=== PATIENT | male | born 1970 | race Caucasian/White ===

== ENCOUNTER 2025-03-16 20:10 | Inpatient (IN) | payer OTHER, SELFPAY ==
[2025-03-16 13:28] VITALS: BP 203/115
--- NOTE | 2025-03-16 14:45 | ED.GENMED ---
History of Present Illness
<Natasha Jensen NP - Last Filed: 03/16/25 21:34>
General
Chief Complaint: Musculo-Skeletal Complaint
Source: patient
Exam Limitations: none
Time Seen by Provider: 03/16/25 14:35
Nursing documentation reviewed up to this point in time: agreed with
History of Present Illness
History of Present Illness:
Patient to ED with redness, swelling, sharp pain to RLE. Symptoms started approx 2 weeks ago. He thought he may have been bit by a bug initially but redness and swelling continue to worsen. Now notes electric shock pain to his leg. He was placed
on an antibiotic approx 10 days ago without improvement. Today he was evaluated by and advised to come to ED. Denies fever/chills No drainage from leg.
Past History
<Natasha Jensen NP - Last Filed: 03/16/25 21:34>
Past History
ED Past Medical History: Psychiatric (Psychosis)
ED Past Surgical History: None
Social History
Tobacco: Smoker
Alcohol: Occasional
Personal: Single
Living: with family
Employment: Not employed
Family History
Family History: Negative Sudden
Review of Systems
<Natasha Jensen NP - Last Filed: 03/16/25 21:34>
Review of Systems
Allergies reviewed?: Yes
All Other Systems: ROS reviewed and negative except as documented in HPI and ROS
Constitutional: Reports no symptoms
EENT: Reports no symptoms
Respiratory: Reports no symptoms
Cardiac: Reports no symptoms
ABD/GI: Reports no symptoms
: Reports no symptoms
Musculoskeletal: Reports other (erythema pain swelling RLE)
Skin: Reports other (erythema and swelling to RLE)
Neurological: Reports no symptoms
Psychiatric: Reports no symptoms
Phy Exam
<Natasha Jensen NP - Last Filed: 03/16/25 21:34>
General Physical Exam
General Presentation: well appearing and no apparent distress
General age: appears stated age
General Skin: warm and dry
General Habitus: normal
General Mental: alert
Musculoskeletal Exam
Musculoskeletal Exam: full ROM and neuro vasc intact
Skin Exam
Skin Exam: warm/dry and other (erythema and swelling to right leg - thighs to toes)
Psychiatric Exam
Psychiatric Exam: normal mood/affect
Course
<Natasha Jensen [employer]URE INSTRUCTOR - Last Filed: 03/16/25 21:34>
Orders/Labs/Results
Orders:
Orders
03/16/25 14:44
Periph Venous Lwr Ext Rt US [US Periph Venous LOWER Ext RT] Urgent
Comment:
Reason For Exam: redness, swelling
03/16/25 15:09
Complete Blood Count/With Diff Urgent
Comprehensive Metabolic Panel Urgent
Lactic Acid Urgent
03/16/25 18:09
Vancomycin [Vancocin] 2,000 mg 0.9% Sodium Chloride 500 ml [Nss] 500 ml IV NOW
03/16/25 19:39
Admit/Transfer Patient As Directed
Co-Sign Provider:
Level of Care: Inpatient admission
Assign to:: Medical/Surgical
Physician / Group: carlo jefferson
Diagnosis: rle cellulitiis
Reason for Hospitalization: rle cellulitis
Expected length of stay greater than two midnights?: Yes
ELOS- Estimated Length of Stay in days: 4
I certify the patient meets the requirements for IP care: Yes
Code Status As Directed
Resuscitation Status: Full Code
03/16/25 19:43
PRN Pain Medication Management As Directed
May give lesser potent ordered pain med per pt: Yes
preference::
Protocol:: Medication orders for pain may be administered in a
manner that supports deferring to patient preference
when the pt is:
- Requesting an ordered lesser potent pain medication.
Least to most potent pain medications are defined
as: acetaminophen < NSAID < tramadol < opioids
(morphine, oxycodone, hydromorphone).
- Requesting a lesser dose of the same medication IF
ORDERED.
- Requesting a less intrusive route of administration
if both routes are prescribed by the provider (PO <
IV).
03/16/25 20:00
HydrALAZINE [Apresoline] 10 mg IV Q6HPRN PRN
Abnormal Lab Results
03/16/25
15:09
Immature Gran % 0.6 H %
(0-0.5)
Glucose 123 H mg/dl
(70-99)
03/16/25 15:09
03/16/25 15:09
Vital Signs
Initial and Last Documented VS:
Initial Vital Signs
Temp Pulse Resp BP Pulse Ox
98.0 F 90 16 203/115 98
03/16/25 13:28 03/16/25 13:28 03/16/25 13:28 03/16/25 13:28 03/16/25 13:28
Last Documented Vital Signs
Temp Pulse Resp BP Pulse Ox
98.2 F 70 20 172/113 98
03/16/25 18:04 03/16/25 18:04 03/16/25 18:04 03/16/25 18:04 03/16/25 18:04
<Amanda Foster DO - Last Filed: 03/16/25 18:39>
Orders/Labs/Results
Orders:
Orders
03/16/25 14:44
Periph Venous Lwr Ext Rt US [US Periph Venous LOWER Ext RT] Urgent
Comment:
Reason For Exam: redness, swelling
03/16/25 15:09
Complete Blood Count/With Diff Urgent
Comprehensive Metabolic Panel Urgent
Lactic Acid Urgent
03/16/25 18:09
Vancomycin [Vancocin] 2,000 mg 0.9% Sodium Chloride 500 ml [Nss] 500 ml IV NOW
03/16/25 19:39
Admit/Transfer Patient As Directed
Co-Sign Provider:
Level of Care: Inpatient admission
Assign to:: Medical/Surgical
Physician / Group: carlo jefferson
Diagnosis: rle cellulitiis
Reason for Hospitalization: rle cellulitis
Expected length of stay greater than two midnights?: Yes
ELOS- Estimated Length of Stay in days: 4
I certify the patient meets the requirements for IP care: Yes
Code Status As Directed
Resuscitation Status: Full Code
03/16/25 19:43
PRN Pain Medication Management As Directed
May give lesser potent ordered pain med per pt: Yes
preference::
Protocol:: Medication orders for pain may be administered in a
manner that supports deferring to patient preference
when the pt is:
- Requesting an ordered lesser potent pain medication.
Least to most potent pain medications are defined
as: acetaminophen < NSAID < tramadol < opioids
(morphine, oxycodone, hydromorphone).
- Requesting a lesser dose of the same medication IF
ORDERED.
- Requesting a less intrusive route of administration
if both routes are prescribed by the provider (PO <
IV).
03/16/25 20:00
HydrALAZINE [Apresoline] 10 mg IV Q6HPRN PRN
Abnormal Lab Results
03/16/25
15:09
Immature Gran % 0.6 H %
(0-0.5)
Glucose 123 H mg/dl
(70-99)
03/16/25 15:09
03/16/25 15:09
Vital Signs
Initial and Last Documented VS:
Initial Vital Signs
Temp Pulse Resp BP Pulse Ox
98.0 F 90 16 203/115 98
03/16/25 13:28 03/16/25 13:28 03/16/25 13:28 03/16/25 13:28 03/16/25 13:28
Last Documented Vital Signs
Temp Pulse Resp BP Pulse Ox
98.2 F 70 20 172/113 98
03/16/25 18:04 03/16/25 18:04 03/16/25 18:04 03/16/25 18:04 03/16/25 18:04
<Natasha Jensen NP - Last Filed: 03/16/25 21:34>
*Radiology
Radiology exam reviewed: radiology read reviewed
*Pulse Oximetry
SaO2: 98
Oxygen Mode of Delivery: Room air
Patient hypoxic: no
*Critical Care Note
Total Time (30-74mins, 75-104mins- exclusive of procedures): Not Applicable
<Natasha Jensen NP - Last Filed: 03/16/25 21:34>
Update Note
Update Note:
Patient to ED with report of increasing pain redness and swelling to RLE. Symptoms started 2 weeks ago. He took a course of Keflex 500mg QID without improvement. Redness and swelling migrating up into thigh. VSS he remains afebrile. WBC normal.
US neg for DVT. +subcutaneous edema throught leg. Case discussed with Dr. Foster who also evaluated this patient. WIll admit to hospitalist for cellulitis. IV antibiotics started in ED
ED Attending Note
<Natasha Jensen NP - Last Filed: 03/16/25 21:34>
-
Portions of this chart may have been created with voice recognition software.� Occasional wrong word or��sound alike� substitutions may have occurred due to the inherent limitations of voice recognition software.
<Amanda Foster DO - Last Filed: 03/16/25 18:39>
ED Attending Note
Patient seen and examined by attending physician: Yes
I performed the substantive portion of visit, reviewed & personally made and approve the management plan that is documented in note by myself or SIDDHARTHA.: Yes
I performed a history and physical exam of patient and discussed management with resident, I reviewed resident's note and agree with documented findings and plan of care.: Yes
ED Attending Note:
54-year-old male with history of schizophrenia presenting for right lower extremity leg swelling. Patient reports the leg has been swollen for about 2 weeks. He went to urgent care, thought to have cellulitis and was started on Keflex. Notes that
he completed a 5-day course without improvement. He is unsure whether or not he was bit by anything. Denies any history of diabetes. Since antibiotic, increased swelling, extending up to the thigh. Denies numbness or tingling. Denies fever.
Vital significant for hypertension.
On exam patient is resting comfortably, no acute distress. Obvious swelling to the right lower extremity extending from the thigh down to the foot with scattered erythema and streaking up to the inner thigh. No obvious sores or wounds. Distal
sensation and pulses intact. DVT ultrasound obtained, negative. No present concern for neurovascular compromise. Symptoms appear consistent with worsening cellulitis, failure of outpatient therapy. Ultrasound does show diffuse subcutaneous
emphysema. Given distribution and worsening after oral antibiotics, feel patient warrants admission for IV antibiotics. Patient agreeable to plan
Discharge Plan
Departure
Patient Disposition: Admit
Date of Disposition: 03/16/25
Time of Disposition: 18:10
Presentation/result/management discussed w/ accepting MD/DO: Hospitalist
Condition: Fair
Covid-19: Not Applicable
Discharge Problem:
Cellulitis of leg
Interventions
Interventions:
*Risk Screen - Suicide Last Done: 03/16/25 13:28
*General Assessment Last Done: 03/16/25 15:10
*Neglect/Abuse Screening Last Done: 03/16/25 13:28
*ED- Fall Risk Assessment Last Done: 03/16/25 15:10
*ED COVID-19 Vaccine History Last Done: 03/16/25 15:10
*ED Influenza Vaccine History Last Done: 03/16/25 15:10
*Nursing Disposition Last Done: 03/16/25 21:27
ED-Musculoskeletal Assessment Last Done: 03/16/25 15:14
Discharge Date and Time
Discharge Date/Time: 03/16/25 21:30
[2025-03-16 14:57] VITALS: BP 176/106; BMI 50.8
[2025-03-16 15:00] VITALS: BP 176/106
[2025-03-16 15:19] LABS: Hematocrit 41.5 % (39.0-52.0); Hemoglobin 14.0 g/dL (13.0-18.0); Mean Corp Hgb Conc. 33.7 g/dL (33.0-37.0); Mean Corpuscular Volume 87.9 fL (80.0-94.0); Nucleated Red Blood Cells % 0 % (-); Platelet Count 250 10^3/uL (130-400); Red Cell Dist. Width 12.7 % (11.5-14.5)
[2025-03-16 15:38] LABS: ALT (SGPT) 38 U/L (0-50); AST (SGOT) 22 U/L (17-59); Albumin 4.3 g/dl (3.5-5.0); Alkaline Phosphatase 58 U/L (38-126); Blood Urea Nitrogen 13 mg/dl (9-20); Calcium 8.8 mg/dl (8.4-10.2); Carbon Dioxide 27 mmol/L (22-30); Chloride 107 mmol/L (98-107); Estimated Creatinine Clearance > 125 ml/min; Glucose 123 mg/dl (70-99); Potassium 4.2 mmol/L (3.5-5.1); Sodium 138 mmol/L (135-145); Total Protein 6.9 g/dl (6.3-8.2); eGFR > 60.00
[2025-03-16 18:04] VITALS: BP 172/113
--- NOTE | 2025-03-16 18:55 | HPS.HSE ---
Addendum entered and electronically signed by Yi Bates MD 03/16/25 20:58:
This is an addendum to H&P written by Christina Yousif on 03/16/2025. �Patient seen and examined independently with SOLE DYER.
54-year-old male past medical history of schizophrenia, presenting redness, swelling and sharp pain in the right lower extremity starting 2 weeks ago. �He thought he was initially bit by a bug but the redness and swelling continued to worsen. �He
was started on Keflex 8 days ago without improvement. �No fevers or chills or drainage from the leg.
Vital signs show blood pressure up to 203/115.
Labs unremarkable.
Peripheral venous ultrasound shows no sonographic evidence of right lower extremity DVT. �There is mild to moderate diffuse subcutaneous edema throughout the right leg.
Patient with cellulitis of right lower extremity. �Vancomycin.
Uncontrolled hypertension. PRN hydralazine.
Original Note:
Family Physician
-
Family Physician: NOT KNOW UNKNOWN - PT DOES
Chief Complaint
-
Right lower extremity erythema
History of Present Illness
54-year-old male with history of schizophrenia, somatic hallucinations states his right leg became swollen with a dry patch approximately 3 weeks ago he waited until 8 days ago to be seen at [facility] where he was prescribed Keflex and given a
tetanus shot as he is worried about bugs in his house. He reports over the past 3 days he started feeling a needlelike pain up the entire leg along with redness spreading up to his upper thigh. He reports feeling some chills but states was in his
computer room which tends to be hot. He does not own a thermometer. He denies headache, chest pain, palpitations, cough, shortness of breath, abdominal pain, nausea, vomiting, diarrhea, urinary symptoms he has past medical history of schizophrenia
with somatic hallucinations, neuropathy, anxiety, class III obesity.
Medical History
Past Medical History
Past Medical History: Reports Other
Additional Past Medical History:
schizophrenia with somatic hallucinations
neuropathy
anxiety
class III obesity.
Past Surgical History: Reports None
Social History
Tobacco: Non-smoker
Alcohol: Occasional
Personal: Single
Living: Alone
Employment: Disabled
Family History
Family History: Not pertinent
Allergies / Home Medications
Allergies reflects when Allergies were last updated in [facility].
Home Medications with original date entered in [facility]
Allergy/Medication List:
Allergies
Allergy/AdvReac Type Severity Reaction Status Date / Time
NKA - No Known Allergies Allergy Unknown Uncoded 03/16/25 13:33
Home Medications
lorazepam 1 mg tablet 1 mg PO TID@0800,1200,2100 08/10/15
gabapentin 800 mg tablet 3,200 mg PO HS 03/16/25
ibuprofen 200 mg tablet 400 mg PO DAILYPRN PRN mild pain 03/16/25
lumateperone 42 mg capsule (Caplyta) 42 mg PO HS 03/16/25
trazodone 100 mg tablet 50 mg PO BIDPRN PRN anxiety 03/16/25
trazodone 100 mg tablet 400 mg PO HS 03/16/25
Review of Systems
-
History Source: Patient
A 12 point ROS was completed and negative except as noted: Yes
Constitutional: Denies Fever or Chills
EENT: Denies Sore Throat
Respiratory: Denies Cough or Trouble Breathing
Cardiac: Denies Chest Pain, Diaphoresis or Palpitations
Abdomen/GI: Denies Abdominal Pain, Nausea, Vomiting, Diarrhea or Constipated
: Denies Dysuria or Frequency
Skin: Denies Itching or Rash
Neurological: Denies Dizzy, Headache or Weakness
Endocrine: Reports No Symptoms
Hematologic/Lymphatic: Reports No Symptoms
Psych: Reports Calm
Physical Exam
Vital Signs
Vital Signs
Temp Pulse Resp BP Pulse Ox
98.2 F 70 20 172/113 98
03/16/25 18:04 03/16/25 18:04 03/16/25 18:04 03/16/25 18:04 03/16/25 18:04
Physical Exam
General: Conversant and Pain; No Fever or Chills
HEENT: NormoCephalic, Anicteric, Moist mucous membranes, PERRLA, [place] Conjunctivae and No Ptosis
Respiratory: Clear; No Wheezes or Rales
Cardiac: S1/S2 and Regular Rhythm; No Murmur, Rub or Gallop
Breast: Deferred by me
GI: Soft, Non Tender, Non Distended and Normal Bowel Sounds
Genito-urinary: Deferred by me
Musculoskeletal: No Clubbing, No Cyanosis and Edema, Right Lower Extremity (Circumferential erythema extending up to thigh, small dry area of skin medial aspect of ankle no obvious wounds); No Edema, Left Upper Extremity, Edema, Right Upper
Extremity or Edema, Left Lower Extremity
Skin: Warm and Dry; No Rash or Jaundice
Neuro: AO x 3, No Motor Deficits, Nonfocal/grossly intact, Cranial Nerves Intact and No Sensory Deficits; No Slurred Speech, Facial Droop or Tremors
Psych: Calm
Laboratory Results
-
03/16/25 15:09
03/16/25 15:09
Laboratory Results
Lactic Acid 0.8 mmol/L (0.7-2.0) 03/16/25 15:09
Total Bilirubin 0.4 mg/dl (0.2-1.3) 03/16/25 15:09
AST 22 U/L (17-59) 03/16/25 15:09
ALT 38 U/L (0-50) 03/16/25 15:09
Alkaline Phosphatase 58 U/L (38-126) 03/16/25 15:09
Data Reviewed
-
Lab Data: Labs Reviewed by me
Impression/Plan
-
Impression/plan:
Admit to MedSurg
#Right lower extremity cellulitis
-IV vancomycin
- Follow CBC, BMP follow CBC, BMP
Venous Doppler right lower extremity: No evidence of DVT,
mild to moderate diffuse subcutaneous edema throughout the right lower leg
#HTN-new
BP 172/113
IV hydralazine as needed
#Neuropathy -somatic hallucinations
-Continue gabapentin 3200 mg at bedtime
#Schizophrenia
#Anxiety
- Continue Caplyta 42 mg at bedtime(patient's brother to bring medication in )
-Continue trazodone 50 mg twice daily as needed, trazodone 400 mg at bedtime, lorazepam 1 mg 3 times daily
#Class III obesity�BMI 50.7
DVT prophylaxis
Subcu Lovenox
Full code
[2025-03-16] MEDS: VANCOCIN 540 MG IV (19:29)
--- NOTE | 2025-03-16 22:05 | TRANSFER ---
Pt arrived from ED by stretcher. Vancomycin running through left AC. Pt walked himself into the room. Vitals taken, BP 138/105. PRN hydralazine given. See MAR. Call hogan within reach.
--- NOTE | 2025-03-16 22:14 | PHA.VAN.IN ---
Assessment
- Assessment
Renal Function: Appears similar to baseline (SCr 0.9)
AUC Dosing Plan
- Dosing Variables
Dosing Weight (kg): 165
Dosing CrCl (ml/min): 125
Vd coefficient (L/kg): 0.5
- Empiric Dosing
Initial / Loading Dose: Vanco 2G loading dose administered 03/16/25 at 1929
Maintenance Regimen: Vanco 1500mg Q8H starting 10/15/24 0600
Estimated AUC (mcg*h/mL): 545
Estimated Peak (mcg*h/mL): 31.4
Estimated Trough (mcg/ml): 15.5
Estimated Half Life (H): 6.4
- Monitoring
No levels ordered at this time: consider in the next few days
Pharmacokinetics Vancomycin I
- -
Patient Age: 54
Patient Sex: Male
Vancomycin Day #: 1
Indication: Skin And Soft Tissue
Requesting Provider: TATUM
Pertinent Antimicrobial Allergies:
No known drug allergies
Height / Weight:
Height 5 ft 11 in
Actual Weight 165 kg
- Vital Signs / Lab Results
Temp Pulse Resp BP Pulse Ox
98.2 F 70 20 172/113 98
03/16/25 18:04 03/16/25 18:04 03/16/25 18:04 03/16/25 18:04 03/16/25 18:04
Lab Results - Hematology
03/16/25
15:09
WBC 6.3
Lab Results - Chemistry
03/16/25
15:09
BUN 13
Creatinine 0.9
Estimated Creat Clear > 125
Albumin 4.3
03/16/25
15:09
Lactic Acid 0.8
[2025-03-16 22:18] VITALS: BP 139/105
[2025-03-16 22:29] VITALS: BMI 50.2
[2025-03-16] MEDS: NON-FORMULARY ITEM 42 MG PO (23:14)
[2025-03-16] MEDS: DESYREL 400 MG PO (23:15)
[2025-03-16] MEDS: ATIVAN 1 MG PO (23:15)
--- NOTE | 2025-03-16 23:54 | PTCARENOTE ---
Pt home med rec shows Gabapentin 3200mg HS. Nothing was ordered in AUG. TT house provider for order. Clarified with patient about the dose and schedule of medication. See MAR.
[2025-03-17] MEDS: APRESOLINE 10 MG IV (00:19)
[2025-03-17] MEDS: NEURONTIN 3200 MG PO ×2 (00:21→21:32)
[2025-03-17 03:50] VITALS: BP 146/78
[2025-03-17 04:19] VITALS: BMI 50.2
[2025-03-17] MEDS: VANCOCIN 530 MG IV ×2 (05:57→14:05)
[2025-03-17 07:23] LABS: Hematocrit 38.1 % (39.0-52.0); Hemoglobin 12.9 g/dL (13.0-18.0); Mean Corp Hgb Conc. 33.9 g/dL (33.0-37.0); Mean Corpuscular Volume 89.9 fL (80.0-94.0); Nucleated Red Blood Cells % 0 % (-); Platelet Count 224 10^3/uL (130-400); Red Cell Dist. Width 12.8 % (11.5-14.5)
[2025-03-17 07:33] LABS: ALT (SGPT) 29 U/L (0-50); AST (SGOT) 18 U/L (17-59); Albumin 3.4 g/dl (3.5-5.0); Alkaline Phosphatase 55 U/L (38-126); Blood Urea Nitrogen 13 mg/dl (9-20); Calcium 8.8 mg/dl (8.4-10.2); Carbon Dioxide 26 mmol/L (22-30); Chloride 111 mmol/L (98-107); Estimated Creatinine Clearance > 125 ml/min; Glucose 146 mg/dl (70-99); Potassium 4.0 mmol/L (3.5-5.1); Sodium 140 mmol/L (135-145); Total Protein 5.8 g/dl (6.3-8.2); eGFR > 60.00
[2025-03-17 07:34] LABS: Glucose - Point of Care 102 mg/dl (70-99)
[2025-03-17 07:40] VITALS: BP 174/95
[2025-03-17] MEDS: ATIVAN 1 MG PO ×3 (08:04→21:32)
--- NOTE | 2025-03-17 09:20 | PHA.VAN.FU ---
Vancomycin Assessment / Plan
- Assessment
Renal Function: Stable
WBC's are: WNL
In the past 24 hrs, patient has been: Afebrile
- Dosing Plan
Continue: VANCO 1500MG Q8H
- Monitoring Plan
Peak Level: 03/18 @0930
Trough Level: 03/18 @1330
- Follow Up
Pharmacy will continue to follow.
Vancomycin Follow UP
- -
Patient Age: 54
Patient Sex: Male
Vancomycin Day #: 2
Indication: Skin And Soft Tissue
Requesting Provider: TATUM
Pertinent Antimicrobial Allergies:
No known drug allergies
Height / Weight:
Height 5 ft 11 in
Actual Weight 163.322 kg
Pertinent Past Medical History: BMI 50
- Vital Signs / Lab Results
Temp Pulse Resp BP Pulse Ox
97.6 F 74 18 174/95 96
03/17/25 07:40 03/17/25 07:40 03/17/25 07:40 03/17/25 07:40 03/17/25 07:45
Lab Results - Hematology
03/16/25 03/17/25
15:09 06:48
WBC 6.3 5.7
Lab Results - Chemistry
03/16/25 03/17/25
15:09 06:48
BUN 13 13
Creatinine 0.9 0.9
Estimated Creat Clear > 125 > 125
Albumin 4.3 3.4 L
03/16/25
15:09
Lactic Acid 0.8
[2025-03-17 11:00] VITALS: BP 147/83
--- NOTE | 2025-03-17 14:08 | W.PN.HOSP.TC ---
Today's Communication/Plan
-
echo
cefazolin
htn management
Assessment / Plan
Assessment / Plan
Physical Exam
General: Conversant and Pain; No Fever or Chills
HEENT: NormoCephalic, Anicteric, Moist mucous membranes, PERRLA, [place] Conjunctivae and No Ptosis
Respiratory: Clear; No Wheezes or Rales
Cardiac: S1/S2 and Regular Rhythm; No Murmur, Rub or Gallop
Breast: Deferred by me
GI: Soft, Non Tender, Non Distended and Normal Bowel Sounds
Genito-urinary: Deferred by me
Musculoskeletal: No Clubbing, No Cyanosis and Edema, Right Lower Extremity (Circumferential erythema extending up to thigh, small dry area of skin medial aspect of ankle no obvious wounds); No Edema, Left Upper Extremity, Edema, Right Upper
Extremity or Edema, Left Lower Extremity
Skin: Warm and Dry; No Rash or Jaundice
Neuro: AO x 3, No Motor Deficits, Nonfocal/grossly intact, Cranial Nerves Intact and No Sensory Deficits; No Slurred Speech, Facial Droop or Tremors
Psych: Calm
#Right lower extremity cellulitis
-Switch to IV cefazolin
#LE edema
-ECHO
-has been going on recently
#HTN-new
IV hydralazine as needed
Decision on what meds to start once echo performed
#Neuropathy -somatic hallucinations
-Continue gabapentin 3200 mg at bedtime
#Schizophrenia
#Anxiety
- Continue Caplyta 42 mg at bedtime(patient's brother to bring medication in )
-Continue trazodone 50 mg twice daily as needed, trazodone 400 mg at bedtime, lorazepam 1 mg 3 times daily
#Class III obesity�BMI 50.7
DVT prophylaxis
Subcu Lovenox
Total time spent on today's encounter was 51 minutes which included time spent in counseling the patient/family regarding diagnosis and treatment plan as listed above, goals of care, and symptom management. Case was discussed with nursing staff,
specialists, and care coordinators/case management. All labs and imaging personally reviewed by me. Remainder the time spent in detailed review of previous records, lab data, imaging, and other medical provider documentation.
Anticipated Discharge: 24 - 48 hours
Subjective/Interval History
-
Date of Service: March 17, 2025
RLE erythema improving
Objective Data
-
Labs:
Laboratory Results
03/17/25
06:48
WBC 5.7
Hgb 12.9 L
Hct 38.1 L
Plt Count 224
Sodium 140
Potassium 4.0
Chloride 111 H
Carbon Dioxide 26
BUN 13
Creatinine 0.9
Glucose 146 H
Calcium 8.8
Total Bilirubin 0.4
AST 18
ALT 29
Alkaline Phosphatase 55
Vital Signs:
Vital Signs
Temp Pulse Resp BP Pulse Ox
97.6 F 85 18 147/83 96
03/17/25 07:40 03/17/25 11:00 03/17/25 07:40 03/17/25 11:00 03/17/25 07:45
I&O
03/16/25 03/17/25 03/18/25
06:59 06:59 06:59
Output Total 500 / 500
Balance -500 / -500
Review of Systems
-
History Source: Patient
All other systems: Not reviewed unless documented
Data Reviewed
-
Ultrasound: Report Reviewed by me
Labs: Labs Reviewed by me
[2025-03-17 15:24] VITALS: BP 159/96
[2025-03-17] MEDS: ANCEF 10 IV (16:06)
[2025-03-17] MEDS: LOVENOX 40 MG SC (20:10)
[2025-03-17] MEDS: DESYREL 400 MG PO (21:33)
[2025-03-17] MEDS: NON-FORMULARY ITEM 1 MG PO (21:35)
[2025-03-17 23:00] VITALS: BP 151/76
[2025-03-18] MEDS: ANCEF 10 IV ×3 (00:02→16:26)
[2025-03-18 05:48] VITALS: BMI 50.0
[2025-03-18 06:52] LABS: Hematocrit 42.2 % (39.0-52.0); Hemoglobin 14.2 g/dL (13.0-18.0); Mean Corp Hgb Conc. 33.6 g/dL (33.0-37.0); Mean Corpuscular Volume 90.2 fL (80.0-94.0); Nucleated Red Blood Cells % 0 % (-); Platelet Count 247 10^3/uL (130-400); Red Cell Dist. Width 12.9 % (11.5-14.5)
[2025-03-18 07:13] VITALS: BP 160/98
[2025-03-18] MEDS: ATIVAN 1 MG PO ×3 (07:59→22:41)
[2025-03-18] MEDS: LOVENOX 40 MG SC ×2 (07:59→22:40)
[2025-03-18 08:00] LABS: ALT (SGPT) 32 U/L (0-50); AST (SGOT) 21 U/L (17-59); Albumin 3.9 g/dl (3.5-5.0); Alkaline Phosphatase 55 U/L (38-126); Blood Urea Nitrogen 12 mg/dl (9-20); Calcium 8.9 mg/dl (8.4-10.2); Carbon Dioxide 25 mmol/L (22-30); Chloride 107 mmol/L (98-107); Estimated Creatinine Clearance > 125 ml/min; Glucose 138 mg/dl (70-99); Potassium 4.4 mmol/L (3.5-5.1); Sodium 138 mmol/L (135-145); Total Protein 6.4 g/dl (6.3-8.2); eGFR > 60.00
--- NOTE | 2025-03-18 13:12 | CM ---
Patient seen at bedside
IA completed
Lives with mom in a multistory home, [address]
PLOF: Independent
Denies DME
Denies VN/Denies rehab
states does have a private psychiatrist
PCP: Alex Brooks
Pharmacy: [facility]
PLAN: Home, no needs when stable, CM to continue to follow
brother to transport
--- NOTE | 2025-03-18 13:23 | W.PN.HOSP.TC ---
Today's Communication/Plan
-
Continue to antibiotics
Initiate hydrochlorothiazide
Assessment / Plan
Assessment / Plan
Physical Exam
General: Conversant and Pain; No Fever or Chills
HEENT: NormoCephalic, Anicteric, Moist mucous membranes, PERRLA, [place] Conjunctivae and No Ptosis
Respiratory: Clear; No Wheezes or Rales
Cardiac: S1/S2 and Regular Rhythm; No Murmur, Rub or Gallop
Breast: Deferred by me
GI: Soft, Non Tender, Non Distended and Normal Bowel Sounds
Genito-urinary: Deferred by me
Musculoskeletal: No Clubbing, No Cyanosis and Edema, Right Lower Extremity (Circumferential erythema extending up to thigh, small dry area of skin medial aspect of ankle no obvious wounds); No Edema, Left Upper Extremity, Edema, Right Upper
Extremity or Edema, Left Lower Extremity
Skin: Warm and Dry; No Rash or Jaundice
Neuro: AO x 3, No Motor Deficits, Nonfocal/grossly intact, Cranial Nerves Intact and No Sensory Deficits; No Slurred Speech, Facial Droop or Tremors
Psych: Calm
#Right lower extremity cellulitis
-Switch to IV cefazolin-�if continue to improve, discharge tomorrow
#LE edema
-ECHO�EF: Normal limits, no evidence of heart failure
-has been going on recently
� Initiate hydrochlorothiazide
#HTN-new
Initiate hydrochlorothiazide
#Neuropathy -somatic hallucinations
-Continue gabapentin 3200 mg at bedtime
#Schizophrenia
#Anxiety
- Continue Caplyta 42 mg at bedtime(patient's brother to bring medication in )
-Continue trazodone 50 mg twice daily as needed, trazodone 400 mg at bedtime, lorazepam 1 mg 3 times daily
#Class III obesity�BMI 50.7
DVT prophylaxis
Subcu Lovenox
Anticipated Discharge: Within 24 hours
Subjective/Interval History
-
Date of Service: March 18, 2025
No acute events
Objective Data
-
Labs:
Laboratory Results
03/18/25
06:40
WBC 5.8
Hgb 14.2
Hct 42.2
Plt Count 247
Sodium 138
Potassium 4.4
Chloride 107
Carbon Dioxide 25
BUN 12
Creatinine 0.9
Glucose 138 H
Calcium 8.9
Total Bilirubin 0.3
AST 21
ALT 32
Alkaline Phosphatase 55
Vital Signs:
Vital Signs
Temp Pulse Resp BP Pulse Ox
98.2 F 87 17 160/98 96
03/18/25 07:13 03/18/25 07:13 03/18/25 07:13 03/18/25 07:13 03/18/25 07:13
I&O
03/17/25 03/18/25 03/19/25
06:59 06:59 06:59
Intake Total 480 / 480
Output Total 500 / 500
Balance -20 / -20
Review of Systems
-
History Source: Patient
All other systems: Not reviewed unless documented
Data Reviewed
-
Ultrasound: Report Reviewed by me
Labs: Labs Reviewed by me
[2025-03-18] MEDS: ORETIC 25 MG PO (14:41)
[2025-03-18 15:09] VITALS: BP 168/91
[2025-03-18] MEDS: APRESOLINE 10 MG IV (18:26)
[2025-03-18] MEDS: MOTRIN 400 MG PO (20:58)
[2025-03-18 22:35] VITALS: BP 165/87
[2025-03-18] MEDS: DESYREL 400 MG PO (22:41)
[2025-03-18] MEDS: NON-FORMULARY ITEM 1 MG PO (22:42)
[2025-03-18] MEDS: NEURONTIN 3200 MG PO (22:42)
[2025-03-19] MEDS: ANCEF 10 IV ×2 (00:41→08:11)
[2025-03-19 07:37] LABS: Hematocrit 43.5 % (39.0-52.0); Hemoglobin 14.9 g/dL (13.0-18.0); Mean Corp Hgb Conc. 34.3 g/dL (33.0-37.0); Mean Corpuscular Volume 88.8 fL (80.0-94.0); Platelet Count 263 10^3/uL (130-400); Red Cell Dist. Width 12.8 % (11.5-14.5)
[2025-03-19 08:03] VITALS: BP 155/107
[2025-03-19] MEDS: ATIVAN 1 MG PO ×2 (08:11→11:50)
[2025-03-19] MEDS: ORETIC 25 MG PO (08:11)
[2025-03-19 08:12] LABS: Blood Urea Nitrogen 13 mg/dl (9-20); Calcium 9.7 mg/dl (8.4-10.2); Carbon Dioxide 25 mmol/L (22-30); Chloride 107 mmol/L (98-107); Estimated Creatinine Clearance > 125 ml/min; Glucose 151 mg/dl (70-99); Potassium 4.3 mmol/L (3.5-5.1); Sodium 139 mmol/L (135-145); eGFR > 60.00
[2025-03-19] MEDS: LOVENOX 40 MG SC (08:16)
--- NOTE | 2025-03-19 12:09 | W.PN.HOSP.TC ---
Addendum entered and electronically signed by Roni Woodard MD 03/20/25 17:07:
[id number]
Original Note:
Today's Communication/Plan
-
cephalexin 500mg qid x 5 more days
hctz 50mg daily
f/u cbc, bmp in 1 week
f/u pcp within 1 week
Assessment / Plan
Assessment / Plan
Physical Exam
General: Conversant and Pain; No Fever or Chills
HEENT: NormoCephalic, Anicteric, Moist mucous membranes, PERRLA, [place] Conjunctivae and No Ptosis
Respiratory: Clear; No Wheezes or Rales
Cardiac: S1/S2 and Regular Rhythm; No Murmur, Rub or Gallop
Breast: Deferred by me
GI: Soft, Non Tender, Non Distended and Normal Bowel Sounds
Genito-urinary: Deferred by me
Musculoskeletal: No Clubbing, No Cyanosis and Edema, Right Lower Extremity (Circumferential erythema extending up to thigh, small dry area of skin medial aspect of ankle no obvious wounds); No Edema, Left Upper Extremity, Edema, Right Upper
Extremity or Edema, Left Lower Extremity
Skin: Warm and Dry; No Rash or Jaundice
Neuro: AO x 3, No Motor Deficits, Nonfocal/grossly intact, Cranial Nerves Intact and No Sensory Deficits; No Slurred Speech, Facial Droop or Tremors
Psych: Calm
#Right lower extremity cellulitis
-Switch to IV cefazolin-�improved; can dc to cephalexin for 7 days
#LE edema
-ECHO�EF: Normal limits, no evidence of heart failure
-has been going on recently
� Initiate hydrochlorothiazide; increase to 50mg daily
-f/u bmp outpt
#HTN-new
Initiate hydrochlorothiazide - increase
#Neuropathy -somatic hallucinations
-Continue gabapentin 3200 mg at bedtime
#Schizophrenia
#Anxiety
- Continue Caplyta 42 mg at bedtime(patient's brother to bring medication in )
-Continue trazodone 50 mg twice daily as needed, trazodone 400 mg at bedtime, lorazepam 1 mg 3 times daily
#Class III obesity�BMI 50.7
DVT prophylaxis
Subcu Lovenox
More than 30 minutes spent in discharge including
Final examination of the patient
Summarizing hospital stay
Instructions for continuing care to all relevant caregivers
Preparation of discharge records, prescriptions, and referral forms
Total time spent (in minutes): 36
Anticipated Discharge: Today
Subjective/Interval History
-
Date of Service: March 19, 2025
no acute events overnight
Objective Data
-
Labs:
Laboratory Results
03/19/25
07:00
WBC 6.5
Hgb 14.9
Hct 43.5
Plt Count 263
Sodium 139
Potassium 4.3
Chloride 107
Carbon Dioxide 25
BUN 13
Creatinine 0.9
Glucose 151 H
Calcium 9.7
Vital Signs:
Vital Signs
Temp Pulse Resp BP Pulse Ox
97.8 F 95 14 155/107 96
03/19/25 08:03 03/19/25 08:03 03/19/25 08:03 03/19/25 08:03 03/19/25 08:03
I&O
03/18/25 03/19/25 03/20/25
06:59 06:59 06:59
Intake Total 480 / 480 1080 / 1080
Output Total 500 / 500
Balance -20 / -20 1080 / 1080
Review of Systems
-
History Source: Patient
All other systems: Not reviewed unless documented
Data Reviewed
-
Ultrasound: Report Reviewed by me
Labs: Labs Reviewed by me
--- NOTE | 2025-03-19 12:11 | W.DS.TRANS ---
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
-
Discharge Instructions:
Discharge Diagnosis/Procedures
#Right lower extremity cellulitis
#LE edema
HTN-new
Diet Low Cholesterol,Low Fat,2 Gram Sodium
Blood Work cbc and bmp in 1 week with pcp
Instructions:
Stand-Alone Forms:
Changes to Home Medications: Yes
Discharge Medications:
DC Medications w/original date entered in [employer]
lorazepam 1 mg tablet 1 mg PO TID@0800,1200,2100 08/10/15
gabapentin 800 mg tablet 3,200 mg PO HS 03/16/25
ibuprofen 200 mg tablet 400 mg PO DAILYPRN PRN mild pain 03/16/25
lumateperone 42 mg capsule (Caplyta) 42 mg PO HS 03/16/25
trazodone 100 mg tablet 50 mg PO BIDPRN PRN anxiety 03/16/25
trazodone 100 mg tablet 400 mg PO HS 03/16/25
cephalexin 500 mg capsule 500 mg PO QID 5 days #20 caps 03/19/25
hydrochlorothiazide 50 mg tablet 50 mg PO DAILY 30 days #30 tabs 03/19/25
Home Medication Changes
cephalexin 500 mg capsule 500 mg PO QID 5 days #20 caps 03/19/25
hydrochlorothiazide 50 mg tablet 50 mg PO DAILY 30 days #30 tabs 03/19/25
Pending Results: No
--- NOTE | 2025-03-19 12:17 | W.DS.TRANS ---
DC Summary - Home Care Manager Rn
-
Discharge Instructions:
Discharge Diagnosis/Procedures
#Right lower extremity cellulitis
#LE edema
HTN-new
Diet Low Cholesterol,Low Fat,2 Gram Sodium
Blood Work cbc and bmp in 1 week with pcp
Instructions:
Stand-Alone Forms:
Changes to Home Medications: Yes
Discharge Medications:
DC Medications w/original date entered in [employer]
lorazepam 1 mg tablet 1 mg PO TID@0800,1200,2100 08/10/15
gabapentin 800 mg tablet 3,200 mg PO HS 03/16/25
ibuprofen 200 mg tablet 400 mg PO DAILYPRN PRN mild pain 03/16/25
lumateperone 42 mg capsule (Caplyta) 42 mg PO HS 03/16/25
trazodone 100 mg tablet 50 mg PO BIDPRN PRN anxiety 03/16/25
trazodone 100 mg tablet 400 mg PO HS 03/16/25
cephalexin 500 mg capsule 500 mg PO QID 5 days #20 caps 03/19/25
hydrochlorothiazide 50 mg tablet 50 mg PO DAILY 30 days #30 tabs 03/19/25
Home Medication Changes
cephalexin 500 mg capsule 500 mg PO QID 5 days #20 caps 03/19/25
hydrochlorothiazide 50 mg tablet 50 mg PO DAILY 30 days #30 tabs 03/19/25
Pending Results: No
--- NOTE | 2025-03-19 12:51 | CM ---
Patient seen at bedside
discharge today
IMM n/a
PLAN: Home, no needs
brother to transport
[2025-03-19 12:55] VITALS: BP 150/99
== END 2025-03-19 13:29 | disposition home or self-care (01) | DRG 603 ==
LOC: 3 WEST ACU 20:10
PROVIDERS: Clinical Nurse Specialist Family Health; Nurse Practitioner; ADMITTING PHYSICIAN Hospitalist; ATTENDING PHYSICIAN Internal Medicine; EMERGENCY PHYSICIAN Student in an Organized Health Care Education/Training Program
DX: L03.115 Cellulitis of right lower limb (principal); Z68.43 Body mass index [BMI] 50.0-59.9, adult; I10 Essential (primary) hypertension; G62.9 Polyneuropathy, unspecified; F20.9 Schizophrenia, unspecified; F41.9 Anxiety disorder, unspecified; E66.813 Obesity, class 3; F17.200 Nicotine dependence, unspecified, uncomplicated
CPT/HCPCS: 80048; 80053; 82962; 83605; 85025; 85027; 93306; 93971; 96374; 99285

== ENCOUNTER 2025-04-30 16:42 | Emergency (ER) | payer OTHER, SELFPAY ==
[2025-04-30 16:45] VITALS: BP 154/97
--- NOTE | 2025-04-30 19:45 | ED.GENMED ---
History of Present Illness
General
Chief Complaint: Skin Problem
Time Seen by Provider: 04/30/25 18:46
History of Present Illness
History of Present Illness:
54-year-old male with history of schizophrenia presenting to the emergency department for concern of 'heat spots 'on his skin. Notes that he had history of cellulitis in the past and was told that if he feels anything unusual to come to the
hospital. Notes that he has been feeling these spots and tingling sensation throughout his body. He also reports concern for bugs in his house, however has been told in the past that it could be from his schizophrenia. Denies fever. Denies chest
pain or difficulty breathing. Denies any new medications or exposures or additional acute medical complaints
Past History
Past History
ED Past Medical History: Psychiatric (Psychosis)
ED Past Surgical History: None
Social History
Tobacco: Smoker
Alcohol: Occasional
Personal: Single
Living: with family
Employment: Not employed
Family History
Family History: Negative Sudden
Phy Exam
Physical Exam
Physical Exam:
General: Well-appearing, no clinical signs of dehydration, nontoxic and in no acute distress
HEENT: protecting airway
Neck: appears supple
CV: Normal heart rate, regular rhythm
Resp: No accessory muscle use, no increased work of breathing, lungs clear to auscultation bilaterally
Abd: No distention
Extremities: No deformities, no swelling, no erythema
Neuro: alert, no focal neurologic deficit
: deferred
Rectal: deferred
Psych: Normal affect
Skin: Intact, no rash
Course
Vital Signs
Initial and Last Documented VS:
Initial Vital Signs
Temp Pulse Resp BP Pulse Ox
98 F 91 20 154/97 95
04/30/25 16:45 04/30/25 16:45 04/30/25 16:45 04/30/25 16:45 04/30/25 16:45
Last Documented Vital Signs
Temp Pulse Resp BP Pulse Ox
98 F 91 20 154/97 95
04/30/25 16:45 04/30/25 16:45 04/30/25 16:45 04/30/25 16:45 04/30/25 19:47
MDM/Problems Addressed
MDM/Problems Addressed:
54-year-old male with history of schizophrenia presenting for skin itching. Vital signs are significant for mild hypertension.
On exam patient is resting comfortably, no acute distress. Unremarkable exam. No signs of any systemic rash. Patient afebrile, nontoxic. Suspect possible component of patient schizophrenia, perseverating on insects and bugs in the house.
Patient does have some excoriations to his skin. Will prescribe Benadryl for the itching and a hydrocortisone cream, advised to use on areas of discomfort or possible eczema component. Patient has a follow-up appointment with his doctor tomorrow
which I advise he maintain. However at this time no sign of cellulitis or concerning skin rash. Stable for discharge. Return precautions discussed
*Pulse Oximetry
SaO2: 95
Oxygen Mode of Delivery: Room air
Patient hypoxic: no
*Critical Care Note
Total Time (30-74mins, 75-104mins- exclusive of procedures): Not Applicable
ED Attending Note
-
Portions of this chart may have been created with voice recognition software.� Occasional wrong word or��sound alike� substitutions may have occurred due to the inherent limitations of voice recognition software.
Discharge Plan
Departure
Patient Disposition: Home (Routine Discharge)
Date of Disposition: 04/30/25
Time of Disposition: 19:49
Patient with high blood pressure during this ER visit?: No
Condition: Good
Discharge Problem:
Itchy skin
Instructions: Itchy skin
Prescriptions:
New
diphenhydramine HCl [Allergy Relief(diphenhydramin)] 25 mg capsule
25 mg PO TID PRN (Reason: itching) Qty: 20 0RF
hydrocortisone 1 % cream
1 applic topical TID PRN (Reason: skin irritation) Qty: 28.35 0RF
No Action
lorazepam 1 MG tablet
1 mg PO TID@0800,1200,2100
gabapentin 800 mg tablet
3,200 mg PO HS
trazodone 100 mg tablet
400 mg PO HS
trazodone 100 mg tablet
50 mg PO BIDPRN PRN (Reason: anxiety)
ibuprofen 200 mg Tablet
400 mg PO DAILYPRN PRN (Reason: mild pain)
Caplyta 42 mg capsule
42 mg PO HS
hydrochlorothiazide 50 mg tablet
50 mg PO DAILY 30 Days Qty: 30 0RF
cephalexin 500 mg capsule
500 mg PO QID 5 Days Qty: 20 0RF
Referrals:
Kendrick Swanson DO [Family Provider, Family Practice]
Activity Restrictions/Additional Instructions:
You were seen in the emergency department for skin itching
You a reassuring physical exam. Recommend follow-up with your primary care doctor tomorrow as scheduled
Return to the emergency department for any worsening of your symptoms, or any development of chest pain, difficulty breathing, abdominal pain with persistent vomiting and inability to tolerate food or liquid by mouth (concern for dehydration),
weakness, headache or confusion, fever greater than 100.4, or any additional symptoms that are concerning to you.
Thank you for choosing [facility].
Interventions
Interventions:
*Risk Screen - Suicide Last Done: 04/30/25 16:45
*General Assessment Last Done: 04/30/25 16:45
*Neglect/Abuse Screening Last Done: 04/30/25 16:45
Discharge Date and Time
Print Language: SETS[place]
== END 2025-04-30 20:14 | disposition home or self-care (01) ==
LOC: EMR 16:42
PROVIDERS: EMERGENCY PHYSICIAN Student in an Organized Health Care Education/Training Program; FAMILY PHYSICIAN Family Medicine
DX: L29.9 Pruritus, unspecified (principal); F17.200 Nicotine dependence, unspecified, uncomplicated
CPT/HCPCS: 99283

== ENCOUNTER 2025-05-22 14:30 | Emergency (ER) | payer OTHER, SELFPAY ==
[2025-05-22 14:33] VITALS: BP 143/108
--- NOTE | 2025-05-22 16:47 | ED.GENMED ---
History of Present Illness
General
Chief Complaint: Crisis Evaluation
Source: patient
Time Seen by Provider: 05/22/25 15:36
History of Present Illness
History of Present Illness:
Note:
CHIEF COMPLAINT(S)
Patient reporting ongoing somatic hallucinations and difficulties related to his home environment and mental health management.
HISTORY OF PRESENT ILLNESS
The patient is a 54-year-old male with a long-standing history of schizophrenia since the age of 21. He presents with complaints of worsening somatic hallucinations. He describes these hallucinations as becoming physically uncomfortable, likening
them to sensations of something under his skin. The patients condition deteriorated particularly with the introduction of a new antipsychotic medication, Caplyta (lumateperone), which he began approximately four to five months ago. He reports that
these hallucinations occur in waves and are exacerbated by his current medication regimen.
The patient also expresses concern about his living situation with his mother, who has advanced dementia, and the impact it has on his mental health. He notes familial stress, as his brothers are not supportive of his experiences, citing them as
spiritual or haunting phenomena. He feels there is a need for intervention and is unsure about his family�s belief in addressing his spiritual concerns.
Recently, the patient was hospitalized four to five weeks ago for an unrelated issue, which he does not specify further. He expresses a need for more supportive guidance and questions if inpatient care might be beneficial for his current condition.
PAST MEDICAL AND SURGICAL HISTORY
The patient has a known history of schizophrenia and briefly mentions a past hospitalization for a 'correction,' but further details of surgeries or other medical comorbidities are not specified.
CHRONIC MEDICAL CONDITIONS SIGNIFICANTLY AFFECTING CARE
The patient has a chronic condition of schizophrenia, which plays a significant role in his current healthcare needs and management.
SOCIAL DETERMINANTS AFFECTING HEALTH
Living with his mother, who has dementia, contributes to significant familial stress. The patient has a challenging relationship with his brothers, who do not understand or believe in the spiritual aspects of his experiences, adding emotional and
psychological burden.
MEDICATIONS
Currently taking Caplyta (lumateperone) for schizophrenia.
PHYSICAL EXAM
General: Alert, no acute distress. Obese.
Skin: Warm, dry.
Head: Normocephalic, atraumatic.
Neck: Supple, trachea midline.
Ears, Nose, Mouth, and Throat: Oral mucosa moist.
Cardiovascular: Normal peripheral perfusion, No edema.
Respiratory: No respiratory distress, respirations are non-labored.
Gastrointestinal: Abdomen nondistended.
Back: Normal range of motion, normal alignment.
Musculoskeletal: Normal range of motion, normal strength.
Neurological: Alert and oriented to person, place, time, and situation. No focal neurological deficit observed. Gait is normal.
Psychiatric: Cooperative, appropriate mood & affect, pressure speech noted. Visual hallucinations admitted.
PLAN
- Obtain blood work to review sodium levels and blood counts.
- Coordination with the crisis department to develop a comprehensive care plan.
- Consideration for possible inpatient care based on the outcome of the crisis evaluation and current needs.
DIFFERENTIAL DIAGNOSIS
The Differential Diagnosis includes, in no particular order and is not limited to:
1. Somatic Hallucination Disorder
2. Schizophrenia exacerbation
3. Substance-induced psychotic disorder
4. Mood disorder with psychotic features
5. Delusional disorder
6. Anxiety disorder with somatic symptom presentation
7. Dementia-related somatic delusions
8. Side effects of antipsychotic medications
9. Conversion disorder
10. Sleep disorder-related hallucinations
Disposition:
SUMMARY OF ENCOUNTER
The patient is a 36-year-old male with a history of schizophrenia who presented to the emergency department with concerns regarding persistent hallucinations. He was relatively stable upon evaluation but showed mild hypertension due to missing his
blood pressure medication. The crisis team evaluated the patient and determined that admission to a psychiatric facility was appropriate due to his current psychiatric needs. The patient was deemed medically stable and did not present with any
additional medical complaints requiring emergency intervention. CBC normal, CMP normal, UDS positive for only benzodiazepines
DISPOSITION
Admit to psychiatric facility.
DIAGNOSIS
- Schizophrenia, unspecified [F20.9]
Past History
Past History
ED Past Medical History: Psychiatric (Psychosis)
ED Past Surgical History: None
Social History
Tobacco: Smoker
Alcohol: Occasional
Personal: Single
Living: with family
Employment: Not employed
Family History
Family History: Negative Sudden
Phy Exam
Physical Exam
Physical Exam:
.
Course
Orders/Labs/Results
Orders:
Orders
05/22/25 15:40
Crisis Consult Routine
Reason for Consult: psychosis
05/22/25 16:50
Alcohol Urgent
Complete Blood Count/With Diff Urgent
Comprehensive Metabolic Panel Urgent
Fentanyl, Urine Urgent
Urine Drug Abuse Screen Urgent
Date Specimen was Collected: 05/22/25
Time Specimen was Collected: 16:42
05/22/25 19:18
Amlodipine [Norvasc] 5 mg PO NOW STA
Abnormal Lab Results
05/22/25
16:50
Abs Immat Gran (auto) 0.1 H 10^3/uL
(0-0.05)
Immature Gran % 0.7 H %
(0-0.5)
Lymphocytes % 18.2 L %
(20.5-51.1)
Glucose 127 H mg/dl
(70-99)
U Benzodiazepines Scrn Positive H
(Negative)
05/22/25 16:50
05/22/25 16:50
Vital Signs
Initial and Last Documented VS:
Initial Vital Signs
Temp Pulse Resp BP Pulse Ox
98.2 F 109 20 143/108 100
05/22/25 14:33 05/22/25 14:33 05/22/25 14:33 05/22/25 14:33 05/22/25 14:33
Last Documented Vital Signs
Temp Pulse Resp BP Pulse Ox
98.4 F 88 18 147/98 95
05/22/25 16:54 05/22/25 21:14 05/22/25 21:14 05/22/25 21:14 05/22/25 21:14
*Pulse Oximetry
SaO2: 100
Oxygen Mode of Delivery: Room air
Patient hypoxic: no
*Critical Care Note
Total Time (30-74mins, 75-104mins- exclusive of procedures): Not Applicable
Data Reviewed
Source: patient
ED Attending Note
-
Portions of this chart may have been created with voice recognition software.� Occasional wrong word or��sound alike� substitutions may have occurred due to the inherent limitations of voice recognition software.
Discharge Plan
Departure
Patient Disposition: Psych Facility
Date of Disposition: 05/22/25
Time of Disposition: 16:47
Discharge Problem:
Schizophrenia, Hallucinations
Prescriptions:
No Action
lorazepam 1 MG tablet
1 mg PO TID@0800,1200,2100
gabapentin 800 mg tablet
3,200 mg PO HS
trazodone 100 mg tablet
400 mg PO HS
trazodone 100 mg tablet
50 mg PO BIDPRN PRN (Reason: anxiety)
ibuprofen 200 mg Tablet
400 mg PO DAILYPRN PRN (Reason: mild pain)
Caplyta 42 mg capsule
42 mg PO HS
hydrochlorothiazide 50 mg tablet
50 mg PO DAILY 30 Days Qty: 30 0RF
diphenhydramine HCl [Allergy Relief(diphenhydramin)] 25 mg capsule
25 mg PO TID PRN (Reason: itching) Qty: 20 0RF
hydrocortisone 1 % cream
1 applic topical TID PRN (Reason: skin irritation) Qty: 28.35 0RF
Referrals:
UNKNOWN - PT DOES,NOT KNOW [Unknown Provider]
Interventions
Interventions:
*Risk Screen - Suicide Last Done: 05/22/25 14:33
*General Assessment Last Done: 05/22/25 16:56
*Neglect/Abuse Screening Last Done: 05/22/25 14:33
*ED COVID-19 Vaccine History Last Done: 05/22/25 16:56
*ED Influenza Vaccine History Last Done: 05/22/25 16:56
[facility] Fall Risk Assessment Tool Last Done: 05/22/25 16:56
ED-Psychological Assessment Last Done: 05/22/25 16:58
Discharge Date and Time
Print Language: SAM[place]
[2025-05-22 16:54] VITALS: BP 174/106
[2025-05-22 16:55] VITALS: BMI 51.7
[2025-05-22 16:59] LABS: Hematocrit 44.6 % (39.0-52.0); Hemoglobin 15.0 g/dL (13.0-18.0); Mean Corp Hgb Conc. 33.6 g/dL (33.0-37.0); Mean Corpuscular Volume 87.6 fL (80.0-94.0); Nucleated Red Blood Cells % 0 % (-); Platelet Count 286 10^3/uL (130-400); Red Cell Dist. Width 13.3 % (11.5-14.5)
[2025-05-22 17:23] LABS: ALT (SGPT) 43 U/L (0-50); AST (SGOT) 29 U/L (17-59); Albumin 4.6 g/dl (3.5-5.0); Alkaline Phosphatase 60 U/L (38-126); Blood Urea Nitrogen 13 mg/dl (9-20); Calcium 9.5 mg/dl (8.4-10.2); Carbon Dioxide 29 mmol/L (22-30); Chloride 100 mmol/L (98-107); Estimated Creatinine Clearance > 125 ml/min; Glucose 127 mg/dl (70-99); Potassium 3.5 mmol/L (3.5-5.1); Sodium 136 mmol/L (135-145); Total Protein 7.5 g/dl (6.3-8.2); eGFR > 60.00
[2025-05-22 18:25] VITALS: BP 162/110
[2025-05-22 19:26] VITALS: BP 177/110
[2025-05-22] MEDS: NORVASC 5 MG PO (19:27)
[2025-05-22 20:45] VITALS: BP 162/100
[2025-05-22 21:14] VITALS: BP 147/98
== END 2025-05-23 00:33 ==
LOC: EMR 14:30
PROVIDERS: EMERGENCY PHYSICIAN Emergency Medicine; FAMILY PHYSICIAN Family Medicine
DX: F20.9 Schizophrenia, unspecified (principal); F17.200 Nicotine dependence, unspecified, uncomplicated; Z63.79 Other stressful life events affecting family and household; Z63.8 Other specified problems related to primary support group
CPT/HCPCS: 99285; 80053; 80306; 80307; 82077; 85025